=== PATIENT | female | born 1955 | race Caucasian/White ===

== ENCOUNTER 2019-05-19 21:33 | Emergency (ER) | payer OTHER, MEDICARE ==
[2019-05-19] MEDS ORDERED: MORPHINE SULFATE INJ 10 MG/ML VIAL IV ONE (22:24)
--- NOTE | 2019-05-19 22:32 | ED.PDOC ---
History of Present Illness - General Chief Complaint: Lower Extremity Injury Stated Complaint: left leg pain from knee down ongoing 2/3 days Time Seen by Provider: 05/19/19 21:42 Source: patient, Vital Signs reviewed, family Exam Limitations: no limitations - History of Present Illness Initial Comments: this is a 63-year-old white female who presents to the emergency Department with complaints of left lower exemity pain onset 3 days ago. She reports that in 2017 she had a DVT involving the left lower extremity. She took Coumadin until last year and quit taking it after she thought that Dr. 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 She now recollects that she had further testing and did not return due to some misunderstanding of his instructions. There is a fhx of coagulopathies. For the past 3 days she has had extreme pain in the left lower extremity from the proximal calf down to the foot. she does have a history of neuropathy, likely stemming from her years of being diagnosed with diabetes. she states that she had a recent venous mapping and is scheduled for venous ablation of the left lower extremity. In the past month she had venous ablation of the right lower extremity. Pain is at an 8/10 in intensity. she denies any chest pain or shortness of breath. She states that she is currently on gabapentin and tramadol for her neuropathy. Allergies/Adverse Reactions: Allergies Meperidine [From Demerol HCl] Allergy (Verified 05/19/19 22:00) Propoxyphene [From Darvon] Allergy (Verified 05/19/19 22:00) Codeine Adverse Reaction (Verified 05/19/19 22:00) Penicillins Adverse Reaction (Verified 05/19/19 22:00) Home Medications: Ambulatory Orders Allopurinol 300 mg PO DAILY 05/19/19 Cyclobenzaprine HCl [Fexmid] 7.5 mg PO TID 05/19/19 Furosemide [Lasix] 40 mg PO DAILY 05/19/19 Gabapentin [Neurontin] 300 mg PO TID 05/19/19 Hydrochlorothiazide 25 mg PO DAILY 05/19/19 Tramadol HCl 50 mg PO QID 05/19/19 Review of Systems - Review of Systems Constitutional: States: no symptoms reported. Denies: chills, fever EENTM: States: no symptoms reported Respiratory: States: no symptoms reported Cardiology: States: no symptoms reported Gastrointestinal/Abdominal: States: no symptoms reported Genitourinary: States: no symptoms reported Musculoskeletal: States: other - left lower extremity pain Skin: States: no symptoms reported Neurological: States: other - chronic pain of the left lower extremity Endocrine: States: no symptoms reported Hematologic/Lymphatic: States: no symptoms reported All other Systems: Reviewed and Negative Past Medical History (General) - Patient Medical History Hx Seizures: No Hx Stroke: No Hx Dementia: No Hx Asthma: Yes Hx of COPD: No Hx Cardiac Disorders: No Hx Congestive Heart Failure: No Hx Pacemaker: No Hx Hypertension: Yes Hx Thyroid Disease: No Hx Diabetes: Yes Hx Gastroesophageal Reflux: No Hx Renal Disease: No Hx Cancer: No Hx of HIV: No Hx Hepatitis C: No Hx MRSA: No Surgical History: other - Vaccination History Hx Tetanus, Diphtheria Vaccination: No Hx Influenza Vaccination: Yes Hx Pneumococcal Vaccination: No - Social History Hx Tobacco Use: Yes - quit 34 years ago Hx Alcohol Use: Yes - seldom - Female History Patient : No Family Medical History - Family History Mother Family History: No Known Physical Exam - Physical Exam General Appearance: Alert, No apparent distress Eyes, Ears, Nose, Throat: PERRL/EOMI Cardiovascular/Respiratory: regular rate, rhythm, no M/R/G, normal peripheral pulses, no JVD, normal breath sounds, no respiratory distress Gastrointestinal/Abdominal: non-tender, no organomegaly Back: normal inspection, no CVA tenderness Leg: pain, swelling, other - there is evidence of pain to palpation in the posterior calf region. Positive Homans sign there is 1+ pitting edema to the left lower extremity Knee: normal inspection, non-tender Ankle: normal inspection, non-tender Foot: swelling Neuro/Tendon: normal motor functions, responds to pain, sensory deficit Mental Status: alert, oriented x 3 Skin: warm/dry, other - patient is noted to have a 1+ DP PT pulses bilaterally lower extremities are warm Progress - Progress Progress: 05/19/19 22:36 patient does have a evidence of a positive Homans sign involving the left lower extremity there are no venous cords noted. The extremity is warm and there is a +1+ DP and PT pulse noted there is evidence of stasis dermatitis present. there is trace edema noted to the lower extremity. The patient will have a d-dimer performed, there is high probability of a recurrent DVT present here. We will treat with pain medications currently. If d-dimer is elevated I will go ahead and start LOVENOX> 05/20/19 00:02 D dimer is still pending. CBC and Chem are unremarkable. 05/20/19 00:43 Elevated d dimer. Pt with high likelihood of dvt. She will be transferred for further evaluation. We will go ahead and initiate lovenox. She prefers transfer to [facility]. Will initiate that process. 05/20/19 01:04 Dr. Salgado, [facility] accepts pt for transfer. - Results/Orders Results/Orders: 05/19/19 22:23 IV:Start .ONCE Laboratory Results - last 24 hr 05/19/19 05/19/19 05/19/19 22:37 22:37 22:37 WBC 7.0 RBC 4.52 Hgb 14.0 Hct 42.0 MCV 92.9 MCH 30.9 MCHC 33.3 RDW 14.0 Plt Count 230 MPV 7.9 Absolute Neuts (auto) 4.70 Absolute Lymphs (auto) 1.50 Absolute Monos (auto) 0.50 Absolute Eos (auto) 0.20 Absolute Basos (auto) 0.10 Neutrophils % 67.5 Lymphocytes % 21.6 Monocytes % 6.7 Eosinophils % 2.7 Basophils % 1.5 D-Dimer, Quantitative 1.34 H* Sodium 141 Potassium 4.2 Chloride 105 Carbon Dioxide 24 Anion Gap 16.2 BUN 15 Creatinine 1.02 BUN/Creatinine Ratio 14.7 Random Glucose 130 H Serum Osmolality 283.8 Calcium 9.2 Total Bilirubin 0.5 AST 27 ALT 21 Alkaline Phosphatase 56 Serum Total Protein 7.0 Albumin 3.5 Globulin 3.5 Albumin/Globulin Ratio 1.0 L Departure - Departure Clinical Impression: Left leg pain, Left leg swelling Disposition: Discharge to Home or Self Care Departure Forms: ED Discharge - Pt. Copy, Patient Portal Self Enrollment Instructions: DI for Leg Pain Home Medications: Ambulatory Orders Allopurinol 300 mg PO DAILY 05/19/19 Cyclobenzaprine HCl [Fexmid] 7.5 mg PO TID 05/19/19 Furosemide [Lasix] 40 mg PO DAILY 05/19/19 Gabapentin [Neurontin] 300 mg PO TID 05/19/19 Hydrochlorothiazide 25 mg PO DAILY 05/19/19 Tramadol HCl 50 mg PO QID 05/19/19 Transfer to Outside Facility - Transfer Information Decision to Transfer Date: 05/20/19 Decision to Transfer Time: 01:05 Reason for Transfer: Further studies not available at this facility Accepting Provider:: Dr. Salgado Accepting Facility: [facility]
[2019-05-20] MEDS ORDERED: ENOXAPARIN SODIUM 80 MG/0.8 ML SYG SUBCU ONE (00:43)
[2019-05-20] MEDS ORDERED: MORPHINE SULFATE INJ 10 MG/ML VIAL IV ONE (00:47)
[2019-05-20 01:07] VITALS: BP 142/70; TEMP 98.5; O2SAT 92
== END 2019-05-20 01:56 | disposition home or self-care (01) ==
LOC: ER 21:33
DX: M79.662 Pain in left lower leg (principal); M79.89 Other specified soft tissue disorders; R60.0 Localized edema; I87.2 Venous insufficiency (chronic) (peripheral); J45.909 Unspecified asthma, uncomplicated; I10 Essential (primary) hypertension; E11.40 Type 2 diabetes mellitus with diabetic neuropathy, unspecified; Z87.891 Personal history of nicotine dependence; Z79.899 Other long term (current) drug therapy; Z88.0 Allergy status to penicillin; Z88.5 Allergy status to narcotic agent; Z88.8 Allergy status to other drugs, medicaments and biological substances; Z86.718 Personal history of other venous thrombosis and embolism
CPT/HCPCS: 80053; 85025; 85379; J1650; J2270

== ENCOUNTER 2019-09-21 | Emergency (ER) | payer OTHER, MEDICARE | END 2019-09-21 14:40 | disposition home or self-care (01) | DX: L03.032 Cellulitis of left toe (principal); I10 Essential (primary) hypertension; E11.9 Type 2 diabetes mellitus without complications; E78.00 Pure hypercholesterolemia, unspecified; J45.909 Unspecified asthma, uncomplicated; Z87.891 Personal history of nicotine dependence; Z88.5 Allergy status to narcotic agent; Z88.0 Allergy status to penicillin; Z79.899 Other long term (current) drug therapy ==